=== PATIENT | female | born 1940 | race Two or more races ===

== ENCOUNTER 2023-10-21 21:59 | Emergency (ER) | payer OTHER ==
[~2023-10-21] VITALS: Ht 144.8 cm; Wt 53.5 kg
[2023-10-22] MEDS: ACETAMINOPHEN 500 MG TAB PO ONE (02:13)
[2023-10-22 02:43] VITALS: BP 143/59; PULSE 69; RESP 16; TEMP 97.6
[2023-10-22 02:45] VITALS: O2SAT 98
== END 2023-10-22 02:51 | disposition home or self-care (01) ==
LOC: ER 21:59
DX: S09.90XA Unspecified injury of head, initial encounter (principal); I10 Essential (primary) hypertension; E11.9 Type 2 diabetes mellitus without complications; E78.5 Hyperlipidemia, unspecified; Z88.0 Allergy status to penicillin; W01.0XXA Fall on same level from slipping, tripping and stumbling without subsequent striking against object, initial encounter; Y93.89 Activity, other specified; Y92.89 Other specified places as the place of occurrence of the external cause; Y99.8 Other external cause status
CPT/HCPCS: 70450